=== PATIENT | female | born 1935 | race Caucasian/White ===

== ENCOUNTER 2020-06-16 11:15 | Emergency (ER) | payer MEDICARE, OTHER ==
--- NOTE | 2020-06-16 11:58 | EDM.PDOC ---
ED HPI GENERAL MEDICAL PROBLEM - General Chief Complaint: Genitourinary Problem Stated Complaint: POSSIBLE UTI Time Seen by Provider: 06/16/20 11:45 Source of Information: Reports: Patient History Limitations: Reports: Other (no old records) - History of Present Illness INITIAL COMMENTS - FREE TEXT/NARRATIVE: 84 yo female presents with dysuria and frequency since last night. No fever, flank pain or nausea. Denies SAMPSON. Has not missed any of her BP meds. [place]. Onset: Gradual Onset Date: 06/15/20 Duration: Hour(s):, Getting Worse Location: Reports: Pelvis (urethra) Quality: Reports: Burning Severity: Moderate Improves with: Reports: None Worsens with: Reports: Other (time, ? swimming in [place]) Context: Reports: Other (See HPI) Associated Symptoms: Reports: No Other Symptoms. Denies: Fever/Chills, Nausea/Vomiting Treatments [employer]: Reports: Other (see below) (none) - Related Data Allergies Allergy/AdvReac Type Severity Reaction Status Date / Time No Known Allergies Allergy Verified 06/16/20 11:53 Home Meds: Home Meds Alendronate Sodium 1 tab PO WEEKLY 06/16/20 [History] Anastrozole [Arimidex] 1 tab PO BEDTIME 06/16/20 [History] Olopatadine HCl 1 drop TOP DAILY 06/16/20 [History] atorvaSTATin [Lipitor] 1 tab PO BEDTIME 06/16/20 [History] cephALEXin [Cephalexin] 500 mg PO TID #18 tablet 06/16/20 [Rx] hydroCHLOROthiazide [Hydrochlorothiazide] 1 tab PO DAILY 06/16/20 [History] lisinopriL [Lisinopril] 1 tab PO DAILY 06/16/20 [History] ED ROS GENERAL - Review of Systems Review Of Systems: See Below Constitutional: Reports: No Symptoms HEENT: Reports: No Symptoms Respiratory: Reports: No Symptoms Cardiovascular: Reports: No Symptoms GI/Abdominal: Reports: No Symptoms : Reports: Dysuria, Frequency, Urgency. Denies: Hematuria Skin: Reports: No Symptoms Neurological: Denies: Headache ED EXAM, RENAL/ - Physical Exam Exam: See Below Exam Limited By: No Limitations General Appearance: Alert, WD/WN, No Apparent Distress Eye Exam: Bilateral Eye: Normal Inspection Cardiovascular: Regular Rate, Rhythm, No Edema Back Exam: No: CVA Tenderness (R), CVA Tenderness (L) Extremities: Normal Inspection Neurological: Alert, Oriented, CN II-XII Intact, Normal Cognition, No Motor/Sensory Deficits Psychiatric: Normal Affect, Normal Mood Skin Exam: Warm, Dry, Intact, Normal Color, No Rash Course - Vital Signs Last Recorded V/S: Last Vital Signs Temp 36.1 C 06/16/20 11:31 Pulse 81 06/16/20 11:31 Resp 13 06/16/20 11:31 BP 228/84 H 06/16/20 11:31 Pulse Ox 97 06/16/20 11:31 - Orders/Labs/Meds Orders: Active Orders 24 hr Category Date Time Status UA W/MICROSCOPIC [URIN] Stat Lab 06/16/20 11:45 Results Labs: Laboratory Tests 06/16/20 Range/Units 11:45 Urine Color Yellow (YELLOW) Urine Appearance Cloudy A (CLEAR) Urine pH 7.5 (5.0-8.0) Ur Specific [place] 1.025 (1.008-1.030) Urine Protein Trace H (NEGATIVE) mg/dL Urine Glucose (UA) Negative (NEGATIVE) mg/dL Urine Ketones Negative (NEGATIVE) mg/dL Urine Occult Blood Large H (NEGATIVE) Urine Nitrite Negative (NEGATIVE) Urine Bilirubin Negative (NEGATIVE) Urine Urobilinogen 0.2 (0.2-1.0) EU/dL Ur Leukocyte Esterase Moderate H (NEGATIVE) Departure - Departure Time of Disposition: 11:56 Disposition: Home, Self-Care 01 Condition: Good Clinical Impression: Cystitis, HTN, goal below 140/80 - Discharge Information *PRESCRIPTION DRUG MONITORING PROGRAM REVIEWED*: No *COPY OF PRESCRIPTION DRUG MONITORING REPORT IN PATIENT CHASTITY: No Instructions: Urinary Tract Infection, Adult, [id number] Referrals: PCP,None [Primary Care Provider] - Additional Instructions: Take AZO per package instructions for your discomfort. Take cephalexin as directed. Double up on your lisinopril and see your doctor for BP recheck jarocho. Sepsis Event Note (ED) - Focused Exam Vital Signs: Vital Signs Temp Pulse Resp BP Pulse Ox 06/16/20 11:31 36.1 C 81 13 228/84 H 97 - My Orders Last 24 Hours: My Active Orders 06/16/20 11:45 UA W/MICROSCOPIC [URIN] Stat - Assessment/Plan Last 24 Hours: My Active Orders 06/16/20 11:45 UA W/MICROSCOPIC [URIN] Stat
== END 2020-06-16 12:12 | disposition home or self-care (01) ==
LOC: JP.ED 11:15
DX: N30.90 Cystitis, unspecified without hematuria (principal); I10 Essential (primary) hypertension; Z79.899 Other long term (current) drug therapy
CPT/HCPCS: 81001; 99283